=== PATIENT | male | born 2000 | race African-American/Black ===

== ENCOUNTER 2020-07-28 21:08 | Emergency (ER) | payer OTHER ==
[~2020-07-28] VITALS: Ht 172.7 cm; Wt 72.6 kg
[~2020-07-28 21:08] MED LIST: CHILDREN'S50 MG/1.24; MIRALAX17 GM PO; PEPTO-BISM262 MG/15
[2020-07-28] MEDS ORDERED: NAPROSYN500 MG PO (21:27)
[2020-07-28] MEDS ORDERED: NORFLEX100 MG PO (21:27)
[2020-07-28] MEDS ORDERED: NOHOMEMEDICATIONS (21:30)
[2020-07-28 21:51] VITALS: BP 127/70
== END 2020-07-28 21:55 | disposition home or self-care (01) ==
LOC: ER 21:08
DX: G89.29 Other chronic pain (principal); M54.9 Dorsalgia, unspecified; F13.10 Sedative, hypnotic or anxiolytic abuse, uncomplicated